=== PATIENT | female | born 1960 | race Caucasian/White ===

== ENCOUNTER 2022-01-07 08:04 | Outpatient (CLI) | payer BC, SELFPAY ==
--- NOTE | 2022-01-07 08:08 | MM_ITS ---
WS: [id number] BILATERAL SCREENING DIGITAL TOMOSYNTHESIS MAMMOGRAM WITH CAD HISTORY: SCREENING COMPARISON: None available. Bilateral CC and MLO views with tomosynthesis and synthetic mammography submitted. Computer aided det ection analyzed. Breast composition: There are scattered areas of fibroglandular density. No suspicious masses, microc alcifications or architectural distortion. MM/[place] [id number] IMPRESSION: BI-RADS: 1-Negative FOLLOW UP: 1 Year Follow-up
== END 2022-01-07 08:05 | disposition home or self-care (01) ==
LOC: RAD 08:04
PROVIDERS: PCP Internal Medicine; Visit Provider Internal Medicine
DX: Z12.31 Encounter for screening mammogram for malignant neoplasm of breast (principal)
CPT/HCPCS: 77063; 77067

== ENCOUNTER 2025-02-22 06:00 | Outpatient (CLI) | payer BC, SELFPAY ==
--- NOTE | 2025-02-22 15:58 | XRR_ITS ---
PROCEDURE INFORMATION: Exam: XR Right Knee Exam date and time: 02/22/2025 9:13 AM Age: 64 years old Clinical indication: Right; She has had RT knee pain on and off for 4 months. No known injury. TECHNIQUE: Imaging protocol: Radiologic exam of the right knee. Views: 3 views. COMPARISON: No relevant prior studies available. FINDINGS: Bones/joints: Tricompartmental osteophytic spurring. Severe joint space narrowing of the patellofemoral compartment. Diffuse osseous demineralization. No acute fracture or dislocation. Soft tissues: Normal. XR/XR knee RT 3V* [id number] IMPRESSION: 1. Tricompartmental osteophytic spurring. Severe joint space narrowing of the patellofemoral compartment. 2. No acute fracture or dislocation.
== END 2025-02-22 06:01 | disposition home or self-care (01) ==
LOC: RADOUTREAD 15:46
PROVIDERS: PCP Internal Medicine; Visit Provider Nurse Practitioner Family
DX: M25.561 Pain in right knee (principal); M22.2X1 Patellofemoral disorders, right knee; M25.761 Osteophyte, right knee
CPT/HCPCS: 73562